=== PATIENT | male | born 1970 | race Caucasian/White ===

== ENCOUNTER 2018-04-12 15:37 | Emergency (ER) | payer MEDICAID ==
[~2018-04-12] VITALS: Ht 180.3 cm; Wt 100.0 kg
[2018-04-12 15:56] VITALS: Ht 180.3 cm; Wt 100.0 kg
[2018-04-12] MEDS ORDERED: DICLOFENAC SODI50 MG PO (16:49)
[2018-04-12 17:09] VITALS: BP 143/96
== END 2018-04-12 17:09 | disposition home or self-care (01) ==
LOC: D.ER 15:37
DX: S86.911A Strain of unspecified muscle(s) and tendon(s) at lower leg level, right leg, initial encounter (principal); X50.1XXA Overexertion from prolonged static or awkward postures, initial encounter; Y93.89 Activity, other specified; Y92.019 Unspecified place in single-family (private) house as the place of occurrence of the external cause; F17.200 Nicotine dependence, unspecified, uncomplicated

== ENCOUNTER 2020-10-17 10:34 | Emergency (ER) | payer SELFPAY ==
[~2020-10-17] VITALS: Ht 180.3 cm; Wt 92.3 kg
[~2020-10-17 10:34] MED LIST: DICLOFENAC SODI50 MG PO
[2020-10-17 10:47] VITALS: BP 159/96; Ht 180.3 cm; Wt 92.3 kg
== END 2020-10-17 11:51 | disposition home or self-care (01) ==
LOC: D.ER 10:34
DX: S61.412A Laceration without foreign body of left hand, initial encounter (principal); W26.0XXA Contact with knife, initial encounter; Y93.9 Activity, unspecified; Y92.9 Unspecified place or not applicable